=== PATIENT | female | born 2000 | race Caucasian/White ===

== ENCOUNTER 2024-02-04 03:36 | Emergency (ER) | payer OTHER ==
[2024-02-04 04:55] VITALS: BP 121/87; PULSE 87; RESP 16
[2024-02-04] MEDS ORDERED: IBUP-2029 MT (05:36)
[2024-02-04] MEDS ORDERED: NEOM28.37 TP (05:36)
== END 2024-02-04 05:50 | disposition home or self-care (01) ==
LOC: ER 03:36
DX: S93.104A Unspecified dislocation of right toe(s), initial encounter (principal); X58.XXXA Exposure to other specified factors, initial encounter; Y93.89 Activity, other specified; Y92.89 Other specified places as the place of occurrence of the external cause; Y99.8 Other external cause status
CPT/HCPCS: 99282